=== PATIENT | female | born 1990 | race Caucasian/White ===

== ENCOUNTER → 2018-04-10 | Outpatient (CLI) | payer BC ==
[~2018-04-10] MED LIST: IBU-TAB200 MG PO; PRENATAL1 TA1 PO
== END ==
LOC: COL.CARD 03-24 08:30
DX: R00.2 Palpitations (principal)

== ENCOUNTER 2019-02-14 19:35 | Emergency (ER) | payer BC ==
[~2019-02-14] VITALS: Ht 170.2 cm; Wt 90.9 kg
[2019-02-14 19:44] VITALS: TEMP 97.4
[2019-02-14] MEDS ORDERED: CEPHALEXIN500 M1 PO (21:25)
[2019-02-14 23:12] VITALS: BP 113/85; PULSE 77
== END 2019-02-14 23:10 | disposition home or self-care (01) ==
LOC: COL.ER 19:35
DX: S90.851A Superficial foreign body, right foot, initial encounter (principal); Z23 Encounter for immunization; F17.210 Nicotine dependence, cigarettes, uncomplicated; W22.8XXA Striking against or struck by other objects, initial encounter; Y92.009 Unspecified place in unspecified non-institutional (private) residence as the place of occurrence of the external cause